=== PATIENT | male | born 1980 | race Two or more races ===

== ENCOUNTER 2021-08-27 10:37 | Outpatient (CLI) | payer OTHER | END 2021-08-27 23:59 | disposition home or self-care (01) | LOC: LAB 10:37 | PROVIDERS: ATTEND Student in an Organized Health Care Education/Training Program | DX: Z01.812 Encounter for preprocedural laboratory examination (principal); Z20.822 Contact with and (suspected) exposure to COVID-19 | CPT/HCPCS: U0003; C9803 ==

== ENCOUNTER 2021-09-02 09:47 | Day surgery (SDC) | payer OTHER ==
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
[2021-09-02 10:30] VITALS: BP 147/93
[2021-09-02] MEDS ORDERED: IBUP-1957 PO (10:51)
[2021-09-02] MEDS ORDERED: CYCL10TA9 PO (10:51)
[2021-09-02] MEDS ORDERED: EPINEPHRINE (1:1000) 1 MG/ML AMPUL ONE (10:55)
[2021-09-02] MEDS ORDERED: LIDOCAINE 1% INJ 50 ML MDV IJ ONE (10:55)
[2021-09-02] MEDS ORDERED: FENTANYL PF 250MCG/5ML AMPUL ONE ×2 (11:31)
[2021-09-02] MEDS ORDERED: HYDROMORPHONE INJ 2 MG/ML DISP.SYRIN ONE (11:32)
[2021-09-02] MEDS ORDERED: MIDAZOLAM HCL 2 MG/2ML VIAL ONE (11:32)
[2021-09-02] MEDS ORDERED: ROCURONIUM BROMIDE 50 MG/5 ML ONE (11:33)
[2021-09-02] MEDS ORDERED: BUPIVACAINE 0.5 % PF 150 MG/30 ML VIAL ONE ×2 (11:33→14:27)
[2021-09-02] MEDS ORDERED: FAMOTIDINE/PF INJ 20 MG/2 ML VIAL IV ONE (11:33)
--- NOTE | 2021-09-02 15:30 | NUR ---
PATIENT ADMITTED FOR DAY SURGERY. WHO SIGNED CONSENT SURGERY AND LEFT TO THE OR ROOM, HOWEVER, PATIENT REFUSED SURGERY, SIGNED AMA, AND LEFT FACILITY. IV REMOVED, AND INCIDENT REPORT DONE.
[2021-09-02 20:00] VITALS: BP 129/50
== END 2021-09-02 18:05 | disposition home or self-care (01) ==
LOC: DS 09:47 → MED 10:11 → UNDOADMIN 10:11 → UNDODISIN 15:30 → DS 18:05
PROVIDERS: ATTEND Student in an Organized Health Care Education/Training Program
DX: M75.122 Complete rotator cuff tear or rupture of left shoulder, not specified as traumatic (principal); Z53.8 Procedure and treatment not carried out for other reasons
CPT/HCPCS: J3490 ×3; J0171; J3010 ×2; G0378; J1170; J2250